=== PATIENT | male | born 1940 ===

== ENCOUNTER 2018-03-11 00:32 | Emergency (ER) | payer MEDICARE ==
--- NOTE | 2018-03-11 02:30 | ED PDOC ---
HPI: Head Injury Time Seen by Provider: 03/11/18 00:56 Chief Complaint (Nursing): Eye Problem History Per: Patient Injury Occurred (Timing): Hours Ago: Onset/Duration Of Symptoms: Hrs Patient States: Fell Striking Head Severity: None Additional Complaint(s): Hx of afib on coumadin (4mg) on ASA presenting with fall, states [place] in an airport [place] in [place] and hit his head on the R side of his forehead, states he tried to break his fall with his R arm but was unable to. States he has no pain currently in hand or head. No LOC/vomiting, no numbness, weakness, tingling since the incident. Patient has no complaints. Past Medical History Reviewed: Historical Data, Nursing Documentation, Vital Signs Vital Signs: Last Vital Signs Temp 98.6 F 03/11/18 00:52 Pulse 86 03/11/18 00:52 Resp 16 03/11/18 00:52 BP 175/81 H 03/11/18 00:52 Pulse Ox 97 03/11/18 00:52 - Medical History PMH: Atrial Fibrillation - Family History Family History: States: Unknown Family Hx - Allergies Allergies/Adverse Reactions: Allergies Allergy/AdvReac Type Severity Reaction Status Date / Time QUINOA Allergy RASH Uncoded 03/11/18 00:52 Review of Systems ROS Statement: Except As Marked, All Systems Reviewed And Found Negative Review Of Systems: ROS cannot be obtained secondary to pt's inabilty to answer questions. Skin: Positive for: Bruising Physical Exam - Reviewed Nursing Documentation Reviewed: Yes Vital Signs Reviewed: Yes - Physical Exam Appears: Positive for: Well, Non-toxic, No Acute Distress Head Exam: Negative for: ATRAUMATIC (R sided ecchymoses to R eyelid and surrounding, no facial bone stepoff) Skin: Positive for: Normal Color, Warm, DRY Eye Exam: Positive for: EOMI, PERRL. Negative for: Normal appearance (Upper eyelid with significant ecchymoses, eye is without abnormality), Conjunctival injection ENT: Positive for: Normal ENT Inspection Neck: Positive for: Normal, Painless ROM, Supple. Negative for: Decreased ROM, Limited ROM Cardiovascular/Chest: Positive for: Regular Rate, Rhythm Respiratory: Positive for: CNT, Normal Breath Sounds Gastrointestinal/Abdominal: Positive for: Normal Exam, Soft Back: Positive for: Normal Inspection Extremity: Positive for: Normal ROM, Other (Abrasion to R hand on volar surface , no scaphoid tenderness, motor and sensation intact ). Negative for: Tenderness Neurologic/Psych: Positive for: Alert, silk spooler II-XII, Oriented. Negative for: Motor/Sensory Deficits - ECG O2 Sat by Pulse Oximetry: 97 Pulse Ox Interpretation: Normal Medical Decision Making Medical Decision MakinAM A/P: Hx of afib on coumadin and ASA presenting with fall at 5PM today -patient very well appearing other than bruising -no neuro deficits -will get head, neck, facial bones CT -given that injury occurred more than 8 hours prior to scans, not necessary for repeat scanning 0312 CT Head w/o Contrast FINDINGS: Brain: Bilateral basal ganglia calcifications. Cerebral and cerebellar volume loss. Patchy hypodensity is seen in the periventricular and subcortical white matter. No hemorrhage. Ventricles: Unremarkable. No ventriculomegaly. Bones/joints: Unremarkable. No acute fracture. Soft tissues: There is a right facial periorbital and frontal soft tissue and scalp hematoma. Possible radiopaque foreign body versus calcification or debris seen on image 8 series 3. Vasculature: Vascular calcifications. Sinuses: Unremarkable. No acute sinusitis. Mastoid air cells: Unremarkable. No mastoid effusion. Orbits: The globe and lens are intact. IMPRESSION: 1. There is a right facial periorbital and frontal soft tissue and scalp hematoma. Possible radiopaque foreign body versus calcification or debris seen on image 8 series 3. 2. No evidence of an acute intracranial hemorrhage, midline shift or mass effect is identified. Dictated and Authenticated by: Helio Kebede MD 03/11/2018 3:12 AM Eastern Time ([place] & [place]) 0320 CT Cervical Spine FINDINGS: Vertebrae: Unremarkable. No acute fracture. Discs/spinal canal/neural foramina: C3-C4: There is moderate to severe bilateral neural foraminal narrowing left more than right. C4-C5: There is moderate to severe narrowing of bilateral neural foramen. C5-C6, C6-C7: There is mild to moderate narrowing of bilateral neural foramen. Soft tissues: Unremarkable. Vasculature: Vascular calcifications. Lung apices: Unremarkable. IMPRESSION: There is no acute fracture of cervical spine. Dictated and Authenticated by: Helio Kebede MD 03/11/2018 3:20 AM Eastern Time ([place] & [place]) 0325 CT Maxillofacial w/o Contrast FINDINGS: Bones/joints: No acute fracture. Soft tissues: Right frontal scalp hematoma with right frontal calcification versus density versus radiopaque foreign body seen on image 134 series 4. Vasculature: Vascular calcifications. Orbits: The globe and lens are intact. Sinuses: Left maxillary sinus mucous retention cyst and/or polyp. Mild patchy sinus disease. No air-fluid levels. Brain: Bilateral basal ganglia calcifications. IMPRESSION: Right frontal scalp hematoma with right frontal calcification versus density versus radiopaque foreign body seen on image 134 series 4.There is no evidence of acute fracture. Dictated and Authenticated by: Helio Kebede MD 03/11/2018 3:25 AM Eastern Time ([place] & [place]) Gave patient results of CTs and INR, advised to avoid leafy vegetables and have INR rechecked. Advised patient to ice his face as much as possible. Injury is nearly 12 hours ago, patient remains very well appearing, ambulatory, patient is safe for discharge, return precautions given. Disposition - Clinical Impression Clinical Impression: Head injury - Disposition Referrals: Adriano Cintron [Outside] Disposition: Routine/Home Disposition Time: 03:45 Condition: STABLE Instructions: Closed Head Injury Forms: Adriano Bain (Maltese)
[2018-03-11 03:21] LABS: INR 3.3 (0.9-1.2); PROTHROMBIN TIME 37.2 Seconds (9.8-13.1)
[2018-03-11 03:22] LABS: PARTIAL THROMBOPLASTIN TIME 41.1 Seconds (25.6-37.1)
[2018-03-11 03:58] VITALS: BP 132/74; PULSE 80; RESP 18; TEMP 98.4
[2018-03-11 04:04] VITALS: O2SAT 97
--- NOTE | 2018-03-11 08:08 | RAD ---
PROCEDURE: Right Hand Radiographs. HISTORY: s/p fall, hand injury COMPARISON: None. FINDINGS: BONES: No acute fracture or destructive bony lesion identified. JOINTS: No subluxation or dislocation. Degenerative cortical sclerosis appreciate throughout the joints of the hand diffusely as well as the carpus. SOFT TISSUES: Normal. OTHER FINDINGS: None. IMPRESSION: Degenerative changes seen diffusely and appear mild in severity. No acute fracture or dislocation identified.
--- NOTE | 2018-03-11 10:24 | CT ---
PROCEDURE: CT HEAD WITHOUT CONTRAST. HISTORY: fall at 530PM, on coumadin COMPARISON: None available. TECHNIQUE: Axial computed tomography images were obtained through the head/brain without intravenous contrast. Radiation dose: Total exam DLP = 810.75 mGy-cm. This CT exam was performed using one or more of the following dose reduction techniques: Automated exposure control, adjustment of the mA and/or kV according to patient size, and/or use of iterative reconstruction technique. FINDINGS: HEMORRHAGE: No intracranial hemorrhage. BRAIN: Good corticomedullary differentiation is seen. Proportional, diffuse expansion of the ventriculosulcal and cisternal spaces is appreciated with white matter lucency compatible with diffuse cerebral atrophy and chronic microangiopathy. No suspicious extra-axial fluid collection is identified and the midline brain anatomy appears grossly nonfocal as imaged. There is no mass effect throughout. VENTRICLES: Unremarkable. No hydrocephalus. CALVARIUM: No destructive bony lesion or displaced fracture identified including through the skullbase. PARANASAL SINUSES: Unremarkable as visualized. No significant inflammatory changes. MASTOID AIR CELLS: Unremarkable as visualized. No inflammatory changes. OTHER FINDINGS: Prominent right periorbital and mild right frontotemporal subcutaneous hematoma/edema. No visualized fracture as imaged. Questionable dermal retained radiodense foreign body lateral to the right anterior zygoma. IMPRESSION: 1. No significant intracranial findings other than mild age related neuro degenerative changes. No calvarial fracture appreciated grossly. 2. Significant right periorbital and fronto temporal subcutaneous edema/hematoma without obvious related fracture as imaged. Which trace dermal retained radiodense foreign body questioned lateral to anterior zygoma. Follow-up facial CT advised. Concordant preliminary report from [facility], 03/11/2018.
--- NOTE | 2018-03-11 10:31 | CT ---
PROCEDURE: CT MAXILLOFACIAL BONES WITHOUT CONTRAST HISTORY: fall at 530PM, on coumadin COMPARISON: None TECHNIQUE: Contiguous axial CT images of the maxillofacial bones were obtained. Coronal and sagittal reformats were generated. Radiation dose: Total exam DLP = 769.15 mGy-cm. This CT exam was performed using one or more of the following dose reduction techniques: Automated exposure control, adjustment of the mA and/or kV according to patient size, and/or use of iterative reconstruction technique. FINDINGS: NASAL BONES: Unremarkable. ORBITS: Nor fracture identified throughout. Nevertheless, there is extensive right preseptal periorbital hematoma/ edema predominantly supraorbital without extension into the postseptal space. The remainder of the right orbit is unremarkable in the left orbit is unremarkable. PARANASAL SINUSES/ MASTOIDS: Clear. MAXILLA: Unremarkable. MANDIBLE/ TEMPOROMANDIBULAR JOINTS: Unremarkable. SKULL BASE: Unremarkable. TEMPORAL BONES: Middle ears and mastoid grossly unremarkable. OTHER FINDINGS: Right periorbital hematoma/edema has extended into the anterior right frontotemporal scalp. Punctate retained radiodense foreign body is not excluded in the dermis at the right lateral temporal skin lateral to the anterior portion of the right zygoma IMPRESSION: No fracture appreciable. Prominent right periorbital preseptal edema/ hematoma is identified extending into the right temporal parietal sub cutaneous scalp. No significant right postseptal findings. Punctate retained radiodense foreign body is not excluded in the dermis at the right lateral temporal skin lateral to the anterior portion of the right zygoma. Concordant preliminary report from [facility], 03/11/2018.
--- NOTE | 2018-03-11 11:03 | CT ---
PROCEDURE: CT Cervical Spine without contrast HISTORY: fall at 530PM, on coumadin COMPARISON: None available. TECHNIQUE: Axial computed tomography images were obtained of the cervical spine without the use of intravenous contrast. Coronal and sagittal reformatted images were created and reviewed. Radiation dose: Total exam DLP = 514.6 mGy-cm. This CT exam was performed using one or more of the following dose reduction techniques: Automated exposure control, adjustment of the mA and/or kV according to patient size, and/or use of iterative reconstruction technique. FINDINGS: VERTEBRAE: No fracture. Normal alignment. No destructive bony lesion. DISCS/SPINAL CANAL/NEURAL FORAMINA: Multilevel disc space narrowing with moderate to severe left worse than right bilateral neural foraminal narrowing at C3-4, moderate to severe bilateral neural foraminal narrowing at C4-5 and mild to moderate bilateral neural foramen narrowing at C5-6 and C6-7. PARASPINAL SOFT TISSUES: Unremarkable. OTHER FINDINGS: None. IMPRESSION: No acute fracture. Multilevel degenerative changes as described above.
== END 2018-03-11 03:56 | disposition home or self-care (01) ==
LOC: H.ER 00:32
DX: S09.90XA Unspecified injury of head, initial encounter (principal); S00.03XA Contusion of scalp, initial encounter; S05.90XA Unspecified injury of unspecified eye and orbit, initial encounter; W01.0XXA Fall on same level from slipping, tripping and stumbling without subsequent striking against object, initial encounter; Y92.520 Airport as the place of occurrence of the external cause; I48.91 Unspecified atrial fibrillation; Z79.01 Long term (current) use of anticoagulants